=== PATIENT | female | born 1970 | race Caucasian/White ===

== ENCOUNTER 2024-05-31 03:22 | Emergency (ER) | payer OTHER ==
[~2024-05-31] VITALS: Ht 157.5 cm; Wt 104.3 kg
[2024-05-31 03:32] VITALS: TEMP 99.3
[2024-05-31] MEDS: SODIUM CHLORIDE 0.9% 1000ML 1,000 ML IV STA (03:40)
[2024-05-31 03:49] LABS: BASOPHILS % 0.6 % (0.0-1.0); EOSINOPHILS # (AUTO) 0.1 (0.0-0.4); EOSINOPHILS % 1.9 % (0.0-6.0); HEMATOCRIT 41.4 % (34.2-44.1); LYMPHOCYTES # (AUTO) 2.4 (1.0-3.2); LYMPHOCYTES % 36.3 % (18.0-39.1); MEAN CORPUSCULAR HGB CONC 31.4 g/dL (31-35); MEAN CORPUSCULAR VOLUME 95.6 fL (81-99); MONOCYTES # (AUTO) 0.4 (0.2-0.8); MONOCYTES % 6.3 % (4.4-11.3); NEUTROPHILS # (AUTO) 3.7 (2.1-6.9); NEUTROPHILS % 54.8 % (38.7-80.0); PLATELET COUNT 180 x10e3/uL (140-360); RED BLOOD COUNT 4.33 x10e6/uL (3.6-5.1); RED CELL DISTRIBUTION WIDTH 13.1 % (11.7-14.4)
[2024-05-31 04:11] LABS: ALBUMIN/GLOBULIN RATIO 1.1 (0.8-2.0); ANION GAP 15.4 mmol/L (8-16); BILIRUBIN,TOTAL 0.3 mg/dL (0.2-1.2); CALCIUM 9.7 mg/dL (8.4-10.2); CREATININE, SERUM 0.87 mg/dL (0.57-1.11); TOTAL PROTEIN 7.5 g/dL (6.5-8.1)
[2024-05-31 04:12] LABS: POTASSIUM 3.4 mmol/L (3.5-5.1)
[2024-05-31 04:14] VITALS: PULSE 77; RESP 16; O2SAT 99
== END 2024-05-31 04:56 | disposition home or self-care (01) ==
LOC: ER 03:27
DX: R25.2 Cramp and spasm (principal); M79.652 Pain in left thigh
CPT/HCPCS: 36415; 80053; 85025; 99284; J7030